=== PATIENT | male | born 1990 | race Caucasian/White ===

== ENCOUNTER 2023-09-30 12:36 | Outpatient (CLI) | payer OTHER, SELFPAY | END 2023-09-30 12:37 | disposition home or self-care (01) | LOC: WOUND 12:42 | PROVIDERS: Visit Provider Family Medicine | DX: L98.412 Non-pressure chronic ulcer of buttock with fat layer exposed (principal); I15.9 Secondary hypertension, unspecified; F10.10 Alcohol abuse, uncomplicated | CPT/HCPCS: 11042; G0463 ==

== ENCOUNTER 2023-10-13 12:51 | Outpatient (CLI) | payer OTHER, SELFPAY | END 2023-10-13 12:52 | disposition home or self-care (01) | LOC: WOUND 12:51 | PROVIDERS: Visit Provider Surgery | DX: I15.9 Secondary hypertension, unspecified (principal); L98.412 Non-pressure chronic ulcer of buttock with fat layer exposed; F10.10 Alcohol abuse, uncomplicated | CPT/HCPCS: 97597 ==

== ENCOUNTER 2023-10-21 15:20 | Outpatient (CLI) | payer OTHER, SELFPAY | END 2023-10-21 15:21 | disposition home or self-care (01) | LOC: WOUND 15:20 | PROVIDERS: Visit Provider Nurse Practitioner Family | DX: L98.412 Non-pressure chronic ulcer of buttock with fat layer exposed (principal); I15.9 Secondary hypertension, unspecified; F10.10 Alcohol abuse, uncomplicated | CPT/HCPCS: 11042 ==

== ENCOUNTER 2023-10-28 15:22 | Outpatient (CLI) | payer OTHER, SELFPAY | END 2023-10-28 15:23 | disposition home or self-care (01) | LOC: WOUND 15:24 | PROVIDERS: Visit Provider Nurse Practitioner Family | DX: I15.9 Secondary hypertension, unspecified (principal); L98.412 Non-pressure chronic ulcer of buttock with fat layer exposed | CPT/HCPCS: 97597 ==

== ENCOUNTER 2023-11-04 15:24 | Outpatient (CLI) | payer OTHER, SELFPAY | END 2023-11-04 15:25 | disposition home or self-care (01) | LOC: WOUND 15:24 | PROVIDERS: Visit Provider Nurse Practitioner Family | DX: L98.418 Non-pressure chronic ulcer of buttock with other specified severity (principal); I15.9 Secondary hypertension, unspecified; F10.10 Alcohol abuse, uncomplicated | CPT/HCPCS: G0463 ==